=== PATIENT | male | born 1940 | race Caucasian/White ===

== ENCOUNTER → 2016-07-23 | Outpatient (CLI) | payer MEDICARE | END | disposition home or self-care (01) | LOC: PCVCIMAG 13:06 | PROVIDERS: ATTEND Internal Medicine Cardiovascular Disease | DX: I65.23 Occlusion and stenosis of bilateral carotid arteries (principal); I10 Essential (primary) hypertension; E11.9 Type 2 diabetes mellitus without complications; E78.00 Pure hypercholesterolemia, unspecified; G47.33 Obstructive sleep apnea (adult) (pediatric) | CPT/HCPCS: 93325; 93351; 93880 ==

== ENCOUNTER → 2017-03-25 | Outpatient (CLI) | payer MEDICARE | END | disposition home or self-care (01) | LOC: PCVCCLINIC 11:18 | PROVIDERS: ATTEND Internal Medicine Cardiovascular Disease | DX: I10 Essential (primary) hypertension (principal); E11.9 Type 2 diabetes mellitus without complications; E78.1 Pure hyperglyceridemia; R94.31 Abnormal electrocardiogram [ECG] [EKG]; Z87.891 Personal history of nicotine dependence; Z79.899 Other long term (current) drug therapy | CPT/HCPCS: 80061; 93005; G0463 ==

== ENCOUNTER → 2017-11-04 | Outpatient (CLI) | payer MEDICARE | END | disposition home or self-care (01) | LOC: PCVCCLINIC 13:19 | DX: E78.00 Pure hypercholesterolemia, unspecified (principal); E78.1 Pure hyperglyceridemia; E11.9 Type 2 diabetes mellitus without complications; I77.9 Disorder of arteries and arterioles, unspecified; Z79.899 Other long term (current) drug therapy | CPT/HCPCS: 80061; 93005; G0463 ==

== ENCOUNTER → 2018-08-11 | Outpatient (CLI) | payer MEDICARE ==
--- NOTE | 2018-08-11 12:55 | PCVCIMAG ---
APPROVED REPORT Study performed: 08/11/2018 11:12:45 Exam: Stress Echocardiogram Indication: hypercholesterolemia,hypertriglyceridemia,DM, FATIGUE Patient Location: Echo lab Stress Nurse: Halie Maxwell RN Room #: 2 Status: routine Ht: 5 ft 8 in HR: 70 bpm BP: 152/92 mmHg Rhythm: First degree AV Block Medical History Medical History: Diabetes, Hyperlipidemia Cardiac Risk Factors: DM, Hyperlipidemia Previous Cardiac Procedures: NONE Pretest Chest Pain Characteristics: No chest pain Exercise History: Indeterminate Procedure The patient underwent an Exercise Stress Test using the Connor Protocol. Blood pressure, heart rate, and EKG were monitored. An Echocardiogram was performed by prosthetic technician in four stages in quad fashion. At peak stress, four selected images were obtained and placed side by side with resting images for comparison. Stress Test Details Stress Test: Exercise stress testing was performed using a Connor protocol. HR Resting HR: 70 bpmMax Heart Rate (APMHR): 141 bpm Max HR Achieved: 148 bpmTarget HR (85% APMHR): 119 bpm % of APMHR: 104 Recovery HR: 102 bpm HR response to stress: Normal HR response to stress BP Resting BP: 152/92 mmHg Max BP: 166/78 mmHg Recovery BP: 142/78 mmHg BP response to stress: Normal blood pressure response to stress. ECG Resting ECst degree AV block Stress ECst degree AV block ST Change: Non-ischemic Maximum ST Deviation: -0.20 mm Arrhythmia: OCC PVC,PAC Recovery ECst degree AV block Recovery ST Change: Non-ischemic Recovery ST Deviation: 0.35 mm Recovery Arrhythmia: OCC PAC Clinical Reason for Termination: Maximal effort Stress Symptoms: FATIGUE Exercise duration: 6 min 00 sec Highest Stage Achieved: Stage 2: 2.5 mph at 12% grade. Exercise capacity: 7.0 METs Overall Exercise Capacity for Age: Average Angina Score: None Stress ECG Conclusion The patient exercised according to the CONNOR protocol for 6:00 mins; achieving a work level of 7.0 METS. The resting heart rate of 70 bpm parvin to a maximum heart rate of 148 bpm. This value represent 104% of the maximal, age-predicted heart rate. The resting blood pressure of 152/92 mmHg, parvin to a maximum blood pressure of 166/78 mmHg. The exercise test was stopped due to FATIGUE. Mishra Treadmill Score is 7.0 which is Low risk. Pre-Stress Echo The resting Echocardiogram showed normal left ventricular contractility with an estimated Ejection Fraction of about 55-60%. Normal wall motion in all segments on baseline images. Post-Stress Echo The stress Echocardiogram showed normal left ventricular contractility with an estimated Ejection Fraction of about 65-70%. Normal augmentation of wall motion in all segments on post stress images. Clinical No clinical or ECG evidence for ischemia. Conclusion Clinical Response: Non-ischemic Exercise Capacity: Average Stress ECG Response: Non-ischemic Stress Echo Images: Non-ischemic No clinical, EKG or echocardiographic evidence for ischemia. No echocardiographic evidence for exercise induced ischemia. Normal stress echocardiogram with maximal exercise stress. <Conclusion> No clinical, EKG or echocardiographic evidence for ischemia. No echocardiographic evidence for exercise induced ischemia. Normal stress echocardiogram with maximal exercise stress.
== END | disposition home or self-care (01) ==
LOC: PCVCIMAG 10:37
PROVIDERS: ATTEND Internal Medicine Cardiovascular Disease
DX: E78.00 Pure hypercholesterolemia, unspecified (principal); E78.1 Pure hyperglyceridemia; E11.9 Type 2 diabetes mellitus without complications; R53.83 Other fatigue; I25.10 Atherosclerotic heart disease of native coronary artery without angina pectoris; I10 Essential (primary) hypertension
CPT/HCPCS: 93325; 93351